=== PATIENT | female | born 1950 | race Caucasian/White ===

== ENCOUNTER → 2017-05-30 17:26 | Emergency (ER) | payer MEDICARE ==
[~2017-05-30 17:26] MED LIST: Famotidine IV* 10 MG/ML 2 ML (20 mg) IV ONE; KCL 20 MEQ/100 ML IVPREMIX* 20 MEQ/100 ML BAG IV ONE; Ketorolac INJ* 30 MG/ML 1 ML VIAL IV PUSH ONE; Metoclopramide IV* 5 MG/ML 2 ML VIAL IV SLOW PU ONE; NS 0.9% 1000 ML* 2,000 ML IV ONE; Potassium Chloride LIQUID* 20 MEQ PACKET PO ONE; diPHENhydraMINE IV* 50 MG/ML 1 ml VIAL (BENADRYL) IV ONE
[2017-05-30 20:40] LABS: ABS Basophils 0 10^3/ul (0-0.2); ABS Eosinophils 0 10^3/ul (0-0.6); ABS Lymphocytes 2.7 10^3/ul (1.0-4.8); ABS Monocytes 1.4 10^3/ul (0-0.8); ABS Neutrophils 9.6 10^3/ul (1.5-7.7); ABS Nucleated RBC 0 10^3/ul; Eosinophil % 0.2 % (0-6); Hematocrit 44 % (35-47); Lymphocyte % 19.4 % (25-47); Mean Corpuscular HGB Conc 34 g/dl (31-36); Mean Corpuscular Hemoglobin 29 pg (27-31); Mean Corpuscular Volume 85 fL (80-97); Mean Platelet Volume 8 um3 (7.4-10.4); Nucleated Red Blood Cells % 0; Platelet Count 291 10^3/ul (150-450); Red Blood Count 5.16 10^6/ul (4.0-5.4); Red Cell Distribution Width 12 % (10.5-15); White Blood Count 13.8 10^3/ul (3.5-10.8)
[2017-05-30] MEDS: KCL premix 10MEQ/50 ML x 2 BAGS IV SCH ×2 (21:30→23:00)
--- NOTE | 2017-05-31 00:16 | ED ---
Susu Menjivar Edward, scribed for Javi Gallagher MD on 05/30/17 at 2016 . Complex/Multi-Sys Presentation - HPI Summary HPI Summary: 66 y/o female presents to the ED c/o intermittent vomiting for four days. Pt has not been able to eat. Symptoms have not been alleviated by anything. Denies pain. Pt has had episodes of vomiting before. Pt's bowel movements were normal prior to the vomiting. PMHx GERD, glaucoma. Pt takes her GERD medication twice a day Denies history of HTN, DM. Pt states her BP and HR were increased two days ago, checked at [facility]. Sx tube removed. - History Of Current Complaint Chief Complaint: EDAbdPain Time Seen by Provider: 05/30/17 20:08 Hx Obtained From: Patient Onset/Duration: Lasting Days, Still Present Timing: Intermittent, Lasting: Associated Signs And Symptoms: Positive: Vomiting - Allergies/Home Medications Allergies/Adverse Reactions: Allergies Allergy/AdvReac Type Severity Reaction Status Date / Time No Known Allergies Allergy Verified 01/21/15 08:12 PMH/Surg Hx/FS Hx/Imm Hx Previously Healthy: No GI History: Reports: Hx Gastroesophageal Reflux Disease Musculoskeletal History: Reports: Hx Arthritis - THROUGHOUT Sensory History: Reports: Hx Contacts or Glasses - GLASSES, Hx Glaucoma - LEFT EYE Denies: Hx Hearing Aid Opthamlomology History: Reports: Hx Contacts or Glasses - GLASSES, Hx Glaucoma - LEFT EYE - Cancer History Hx Chemotherapy: No Hx Radiation Therapy: No - Surgical History Surgery Procedure, Year, and Place: 1979-[place]AL LIGATION- [place]. [place] [facility] [place] 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 2001-[facility] FOOT F[facility]IT[facility]. 2006-GLAUCOMA LEFT EYE- VAL[facility]- [place]. 2008-[place]OM[place] [facility] [place] 2009[place] [place] Hx Anesthesia Reactions: Yes - HAS WOKEN UP 3 TIMES DURING 3 DIFFERENT SURGERIES Infectious Disease History: No Infectious Disease History: Denies: Traveled Outside the [place] in Last 30 Days - Family History Known Family History: Positive: Unknown - Social History Alcohol Use: Weekly Alcohol Amount: 3 PER WEEK Hx Substance Use: No Substance Use Type: Reports: None Hx Tobacco Use: Yes Smoking Status (MU): Former Smoker Amount Used/How Often: 1 PPD X 30 YEARS Have You Smoked in the Last Year: No Review of Systems Constitutional: Negative Eyes: Negative ENT: Negative Cardiovascular: Negative Respiratory: Negative Positive: Vomiting. Negative: Abdominal Pain Genitourinary: Negative Musculoskeletal: Negative Skin: Negative Neurological: Negative Psychological: Normal All Other Systems Reviewed And Are Negative: Yes Physical Exam - Summary Physical Exam Summary: VITAL SIGNS: Reviewed. GENERAL: Patient is a well-developed and nourished female who is lying comfortable in the stretcher. Patient is not in any acute respiratory distress. HEAD AND FACE: No signs of trauma. No ecchymosis, hematomas or skull depressions. No sinus tenderness. EYES: PERRLA, EOMI x 2, No injected conjunctiva, no nystagmus. EARS: Hearing grossly intact. Ear canals and tympanic membranes are within normal limits. MOUTH: Oropharynx within normal limits. NECK: Supple, trachea is midline, no adenopathy, no JVD, no carotid bruit, no c- spine tenderness, neck with full ROM. CHEST: Symmetric, no tenderness at palpation LUNGS: Clear to auscultation bilaterally. No wheezing or crackles. CVS: Regular rate and rhythm, S1 and S2 present, no murmurs or gallops appreciated. ABDOMEN: Soft, non-tender. No signs of distention. No rebound no guarding, and no masses palpated. Bowel sounds are normal. EXTREMITIES: FROM in all major joints, no edema, no cyanosis or clubbing. NEURO: Alert and oriented x 3. No acute neurological deficits. Speech is normal and follows commands. SKIN: Dry and warm Triage Information Reviewed: Yes Vital Signs On Initial Exam: Initial Vitals Temp Pulse Resp BP Pulse Ox 98.7 F 116 18 132/77 98 05/30/17 17:30 05/30/17 17:30 05/30/17 17:30 05/30/17 17:30 05/30/17 17:30 Vital Signs Reviewed: Yes Diagnostics - Vital Signs Vital Signs Temp Pulse Resp BP Pulse Ox 05/30/17 17:30 98.7 F 116 18 132/77 98 - Laboratory Result Diagrams: 05/30/17 20:30 05/30/17 20:30 Lab Statement: Any lab studies that have been ordered have been reviewed, and results considered in the medical decision making process. Complex Multi-Symp Course/Dx Assessment/Plan: 66 y/o female presents to the ED c/o intermittent vomiting for four days. In the ED the pt had PO intake without voimting. The pt will be d/c home with f/u with PCP and instructed to increase citrus intake tomorrow. - Diagnoses Provider Diagnoses: Vomiting Discharge - Discharge Plan Condition: Stable Disposition: HOME Prescriptions: Metoclopramide TAB* [Reglan TAB*] 10 mg PO Q6H PRN #20 tab PRN Reason: Nausea/Vomiting Patient Education Materials: Acute Nausea and Vomiting (ED) Referrals: Malika Nails MD [Primary Care Provider] - 4 Days (PLEASE F/U IN 3-5 DAYS) Additional Instructions: PLEASE RETURN TO THE ED FOR RETURN OR WORSENING OF SYMPTOMS. PLEASE INCREASE YOUR CITRUS INTAKE TOMORROW (ORANGES AND BANANAS) The documentation as recorded by the Susu rodriguez Edward accurately reflects the service I personally performed and the decisions made by Elliott humphrey Abdul, MD.
[2017-05-31 02:28] VITALS: BP 157/78
== END | disposition home or self-care (01) ==
LOC: ED 17:26
DX: R11.10 Vomiting, unspecified (principal); K21.9 Gastro-esophageal reflux disease without esophagitis; M19.90 Unspecified osteoarthritis, unspecified site; Z87.891 Personal history of nicotine dependence
CPT/HCPCS: 36415; 80053; 82150; 83605; 83690; 85025; 86140; 96365; 96366; 96374; 96375; 99282; A9270-GY; J1200; J1885; J2765; J3480

== ENCOUNTER 2017-06-01 18:41 | Emergency (ER) | payer MEDICARE ==
[2017-06-01] MEDS ORDERED: NS 0.9% 1000 ML* 1,000 ML IV ONE (19:27)
[2017-06-01] MEDS ORDERED: Famotidine IV* 10 MG/ML 2 ML (20 mg) IV SLOW PU ONE (19:28)
[2017-06-01] MEDS ORDERED: Pantoprazole IV* 40 MG IV ONE (19:28)
[2017-06-01] MEDS ORDERED: Magnesium Sulfate 1 GM IV* 1 GM/100 ML BAG IV ONE (19:29)
[2017-06-01] MEDS ORDERED: NS 0.9% w/ 40 Meq KCL 1000 ML* 1,000 ML IV SCH (20:00)
[2017-06-01 20:19] LABS: ABS Basophils 0 10^3/ul (0-0.2); ABS Eosinophils 0.1 10^3/ul (0-0.6); ABS Lymphocytes 3.1 10^3/ul (1.0-4.8); ABS Monocytes 0.9 10^3/ul (0-0.8); ABS Neutrophils 7.1 10^3/ul (1.5-7.7); ABS Nucleated RBC 0 10^3/ul; Eosinophil % 0.8 % (0-6); Hematocrit 38 % (35-47); Lymphocyte % 27.8 % (25-47); Mean Corpuscular HGB Conc 34 g/dl (31-36); Mean Corpuscular Hemoglobin 29 pg (27-31); Mean Corpuscular Volume 86 fL (80-97); Mean Platelet Volume 8 um3 (7.4-10.4); Nucleated Red Blood Cells % 0.1; Platelet Count 269 10^3/ul (150-450); Red Blood Count 4.44 10^6/ul (4.0-5.4); Red Cell Distribution Width 12 % (10.5-15); White Blood Count 11.3 10^3/ul (3.5-10.8)
[2017-06-01 20:34] LABS: EGFR Non-African American 86.6 (>60)
[2017-06-01] MEDS: Potassium Chloride LIQUID* 20 MEQ PACKET PO ONE (21:26)
[2017-06-02] MEDS ORDERED: Potassium Chloride LIQUID* 20 MEQ PACKET ONE (00:05)
[2017-06-02] MEDS: Potassium Chloride LIQUID* 20 MEQ PACKET PO ONE (00:09)
[2017-06-02 03:26] VITALS: BP 138/71
--- NOTE | 2017-06-02 05:28 | ED ---
Bob Menjivar Julia, scribed for Дмитрий Norton MD on 06/01/17 at 1920 . Complex/Multi-Sys Presentation - HPI Summary HPI Summary: This patient is a 66 year old M [place] [facility] [place] by her with chief complaint nausea and vomiting since 05/26/17. She denies diarrhea. She reports sensation of blockage at base of esophagus. Patient states she has not drank fluids or eaten since 05/26/17. Her last BM was the morning of . She has been given multiple anti-nausea medications; providing no relief in symptoms. Pt has was at PCPs office (Dr. Nails) earlier today and was told she needs to increase her potassium levels in order to have GI scope performed; she states she was referred to ED to increase potassium levels. - History Of Current Complaint Chief Complaint: EDGeneral Time Seen by Provider: 06/01/17 19:07 Hx Obtained From: Patient Onset/Duration: Lasting Weeks, Still Present Timing: Constant Location: Negative Associated Signs And Symptoms: Positive: Other - nausea and vomiting - Allergies/Home Medications Allergies/Adverse Reactions: Allergies Allergy/AdvReac Type Severity Reaction Status Date / Time No Known Allergies Allergy Verified 01/21/15 08:12 PMH/Surg Hx/FS Hx/Imm Hx GI History: Reports: Hx Gastroesophageal Reflux Disease Musculoskeletal History: Reports: Hx Arthritis - THROUGHOUT Sensory History: Reports: Hx Contacts or Glasses - GLASSES, Hx Glaucoma - LEFT EYE Denies: Hx Hearing Aid Opthamlomology History: Reports: Hx Contacts or Glasses - GLASSES, Hx Glaucoma - LEFT EYE - Cancer History Hx Chemotherapy: No Hx Radiation Therapy: No - Surgical History Surgery Procedure, Year, and Place: 1979-[place]UBAL LIGATION- [place]. 1985[place] [facility] [place]-FALLOPIAN TUBE REMOVED-VENTILATING EXPERT. 2001-LEFT FOOT FASCIITIS- [facility]. 2006-GLAUCOMA LEFT EYE- [facility]- [place]. 2007-[place] [facility] [place] 2009[place] [place]x Anesthesia Reactions: Yes - HAS WOKEN UP 3 TIMES DURING 3 DIFFERENT SURGERIES Infectious Disease History: No Infectious Disease History: Denies: Traveled Outside the [place] in Last 30 Days - Family History Known Family History: Positive: Other - alzhiemers Negative: Cardiac Disease - Social History Alcohol Use: Weekly Alcohol Amount: 3 PER WEEK Hx Substance Use: Yes Substance Use Type: Reports: Marijuana Hx Tobacco Use: Yes Smoking Status (MU): Former Smoker Amount Used/How Often: 1 PPD X 30 YEARS Have You Smoked in the Last Year: No Review of Systems Positive: Other - hypokalemia. Negative: Fever Positive: Vomiting, Nausea. Negative: Diarrhea All Other Systems Reviewed And Are Negative: Yes Physical Exam - Summary Physical Exam Summary: Appearance: Well appearing, no pain distress Skin: warm, dry, reflects adequate perfusion Head/face: normal Eyes: EOMI, MARIO ENT: normal Neck: supple, non-tender Respiratory: CTA, breath sounds present Cardiovascular: RRR, pulses symmetrical Abdomen: non-tender, soft Bowel: present Musculoskeletal: normal, strength/ROM intact Neuro: normal, sensory motor intact, A&Ox3 Triage Information Reviewed: Yes Vital Signs On Initial Exam: Initial Vitals Temp Pulse Resp BP Pulse Ox 98.5 F 77 15 140/66 97 06/01/17 18:42 06/01/17 18:42 06/01/17 18:42 06/01/17 18:42 06/01/17 18:42 Vital Signs Reviewed: Yes Diagnostics - Vital Signs Vital Signs Temp Pulse Resp BP Pulse Ox 06/01/17 19:00 83 18 135/88 100 06/01/17 18:42 98.5 F 77 15 140/66 97 - Laboratory Lab Results: Lab Results 06/01/17 06/01/17 Range/Units 20:08 20:08 WBC 11.3 H (3.5-10.8) 10^3/ul RBC 4.44 (4.0-5.4) 10^6/ul Hgb 13.0 (12.0-16.0) g/dl Hct 38 (35-47) % MCV 86 (80-97) fL MCH 29 (27-31) pg MCHC 34 (31-36) g/dl RDW 12 (10.5-15) % Plt Count 269 (150-450) 10^3/ul MPV 8 (7.4-10.4) um3 Neut % (Auto) 62.8 (38-83) % Lymph % (Auto) 27.8 (25-47) % [place] % (Auto) 8.2 (1-9) % Eos % (Auto) 0.8 (0-6) % Baso % (Auto) 0.4 (0-2) % Absolute Neuts (auto) 7.1 (1.5-7.7) 10^3/ul Absolute Lymphs (auto) 3.1 (1.0-4.8) 10^3/ul Absolute Monos (auto) 0.9 H (0-0.8) 10^3/ul Absolute Eos (auto) 0.1 (0-0.6) 10^3/ul Absolute Basos (auto) 0 (0-0.2) 10^3/ul Absolute Nucleated RBC 0 10^3/ul Nucleated RBC % 0.1 Sodium 135 (133-145) mmol/L Potassium 2.6 L* (3.5-5.0) mmol/L Chloride 101 (101-111) mmol/L Carbon Dioxide 26 (22-32) mmol/L Anion Gap 8 (2-11) mmol/L BUN 14 (6-24) mg/dL Creatinine 0.68 (0.51-0.95) mg/dL Est GFR ( Amer) 111.3 (>60) Est GFR (Non-Af Amer) 86.6 (>60) BUN/Creatinine Ratio 20.6 H (8-20) Glucose 94 (70-100) mg/dL Calcium 8.4 L (8.6-10.3) mg/dL Magnesium 2.2 (1.9-2.7) mg/dL Result Diagrams: 06/01/17 20:08 06/01/17 20:08 Lab Statement: Any lab studies that have been ordered have been reviewed, and results considered in the medical decision making process. - EKG 19:41 Cardiac Rate: NL - at 81 BPM EKG Rhythm: Sinus Rhythm ST Segment: Normal EKG Interpretation: nml axis, poor R wave progression, Q wave in lead 3 Complex Multi-Symp Course/Dx Course Of Treatment: Patient presents with persistent nausea and vomiting for past week. Patient has been seen for hypokalemia. She was told she must improve potassium levels before having GI scope performed and was refered to ED. Pts potassium levels are at 2.6. I spoke with Dr. Siddiqui and she agrees that patient is stable enough to have GI scope performed given that she is currently asymptomatic. Patient given IV and oral potassium here and IV mag. Able to joan po slowly. Likely esoph stricture, will need this rectified before obstructive cause of vomiting and resulting hypoK rectified. - Diagnoses Differential Diagnoses/HQI/PQRI: Metabolic Abnormality, Other - esophageal cause of vomiting Provider Diagnoses: Esophageal stricture, Acute vomiting, Hypokalemia due to loss of potassium - Physician Notifications Discussed Care Of Patient With: Malika Siddiqui - hospitalist Time Discussed With Above Provider: 21:02 Instructed by Provider To: Other - Agrees pt does not need to be admitted, agrees with plan, and states pt can safely have procedure as needed. - Critical Care Time Critical Care Time: 30-74 min - excludes separately billable procedures. Includes extensive discussion with family, formulation of plan and mult reevals. Discharge - Discharge Plan Condition: Good Disposition: HOME Patient Education Materials: Hypokalemia (ED), Esophageal Stricture (ED) Referrals: Malika Nails MD [Primary Care Provider] - Coleen Ayon DO [Doctor of Osteopathy] - Additional Instructions: Call GI Lab and go in for your procedure in the morning. Fill your prescription. 1. Your potassium was not at a critical level. At >2.2 you should be able to safely have this procedure. 2. The vomiting from the stricture is the cause of the low potassium. Potassium will not be fixed until you have the procedure. 3. Return with persistent vomiting, weakness, worse or other concerns. 4. Liquid intake only. Only take small sips. The documentation as recorded by the Bob rodriguez Julia accurately reflects the service I personally performed and the decisions made by me, Дмитрий Norton MD.
== END 2017-06-02 01:10 | disposition home or self-care (01) ==
LOC: ED 18:41
DX: E87.6 Hypokalemia (principal); R11.2 Nausea with vomiting, unspecified; Z87.891 Personal history of nicotine dependence; K22.2 Esophageal obstruction; Z87.19 Personal history of other diseases of the digestive system
CPT/HCPCS: 36415; 80048; 83735; 85025; 93005; 96374; 96375; 99285; A9270-GY; J3475

== ENCOUNTER 2018-03-14 19:14 | Inpatient (IN) | payer MEDICARE ==
--- NOTE | 2018-03-14 19:42 | ED ---
Abdominal Pain/Female - HPI Summary HPI Summary: This patient is a 67 year old F presenting to [facility] accompanied by her with a chief complaint of constant epigastric pain since 03:00. Patient notes that she was seen at [facility] in May 2017 similar symptoms. The patient rates the pain 10/10 in severity. Symptoms aggravated by nothing. Symptoms alleviated by nothing. Patient reports chills, clammy skin, nausea, and vomiting. Patient reports that her last BM was 1 day ago. Pt denies hx of constipation. Patient takes Prozac daily. - History of Current Complaint Chief Complaint: EDAbdPain Stated Complaint: VOMITING Time Seen by Provider: 03/14/18 19:23 Hx Obtained From: Patient Onset/Duration: Sudden Onset, Lasting Hours, Still Present Timing: Constant Severity Initially: Moderate Severity Currently: Moderate Pain Intensity: 10 Pain Scale Used: 0-10 Numeric Location: Diffuse Radiates: No Aggravating Factor(s): Nothing Alleviating Factor(s): Nothing Associated Signs and Symptoms: Positive: Nausea, Vomiting Allergies/Adverse Reactions: Allergies Allergy/AdvReac Type Severity Reaction Status Date / Time No Known Allergies Allergy Verified 03/14/18 19:32 PMH/Surg Hx/FS Hx/Imm Hx GI History: Reports: Hx Gastroesophageal Reflux Disease Musculoskeletal History: Reports: Hx Arthritis - THROUGHOUT Sensory History: Reports: Hx Contacts or Glasses - GLASSES, Hx Glaucoma - LEFT EYE Denies: Hx Hearing Aid Opthamlomology History: Reports: Hx Contacts or Glasses - GLASSES, Hx Glaucoma - LEFT EYE - Cancer History Hx Chemotherapy: No Hx Radiation Therapy: No - Surgical History Surgery Procedure, Year, and Place: 1979-TUBAL LIGATION- [place]. 1985-LEFT EYE CATARACT- [facility] [place]. 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 2001-LEFT FOOT F[facility]CIITIS[facility]. 2006-GLAUCOMA LEFT EYE- [facility]- [place]. 2007-RIGHT PAROTIDECTOMY- [facility] [place]. 2009-LEFT PAROTIDECTOMY[place] [place] Hx Anesthesia Reactions: Yes - HAS WOKEN UP 3 TIMES DURING 3 DIFFERENT SURGERIES Infectious Disease History: No Infectious Disease History: Denies: Traveled Outside the US in Last 30 Days - Family History Known Family History: Positive: Other - alzhiemers Negative: Cardiac Disease - Social History Alcohol Use: Weekly Alcohol Amount: 3 PER WEEK Hx Substance Use: Yes Substance Use Type: Reports: Marijuana Hx Tobacco Use: Yes Smoking Status (MU): Former Smoker Amount Used/How Often: 1 PPD X 30 YEARS Have You Smoked in the Last Year: No Review of Systems Positive: Chills, Skin Diaphoresis Negative: Epistaxis Negative: Cough Positive: Abdominal Pain - epigastric pain, Vomiting, Nausea Negative: Rash All Other Systems Reviewed And Are Negative: Yes Physical Exam - Summary Physical Exam Summary: VITAL SIGNS: Reviewed. GENERAL: Patient is a well-developed and nourished FEMALE who is lying comfortable in the stretcher. Patient is not in any acute respiratory distress. HEAD AND FACE: No signs of trauma. No ecchymosis, hematomas or skull depressions. No sinus tenderness. EYES: PERRLA, EOMI x 2, No injected conjunctiva, no nystagmus. EARS: Hearing grossly intact. Ear canals and tympanic membranes are within normal limits. MOUTH: Oropharynx within normal limits. NECK: Supple, trachea is midline, no adenopathy, no JVD, no carotid bruit, no c- spine tenderness, neck with full ROM. CHEST: Symmetric, no tenderness at palpation LUNGS: Clear to auscultation bilaterally. No wheezing or crackles. CVS: Regular rate and rhythm, S1 and S2 present, no murmurs or gallops appreciated. ABDOMEN: Soft, diffuse abdominal tenderness. Abdominal distention. No rebound no guarding, and no masses palpated. Hypoactive bowel sounds. EXTREMITIES: FROM in all major joints, no edema, no cyanosis or clubbing. NEURO: Alert and oriented x 3. No acute neurological deficits. Speech is normal and follows commands. SKIN: Dry and warm Triage Information Reviewed: Yes Vital Signs On Initial Exam: Initial Vitals Temp Pulse Resp BP Pulse Ox 95.3 F 99 20 139/88 98 03/14/18 19:17 03/14/18 19:17 03/14/18 19:17 03/14/18 19:17 03/14/18 19:17 Vital Signs Reviewed: Yes Diagnostics - Vital Signs Vital Signs Temp Pulse Resp BP Pulse Ox 03/14/18 19:17 95.3 F 99 20 139/88 98 - Laboratory Result Diagrams: 03/14/18 19:51 03/14/18 19:51 Lab Statement: Any lab studies that have been ordered have been reviewed, and results considered in the medical decision making process. - CT CT Abd/Pelvis CT Interpretation Completed By: Radiologist Summary of CT Findings: Impression: sigmoid colon diverticulitis without performation or abscess. Dr. Gallagher has reviewed this report. Re-Evaluation - Re-Evaluation 1st re-eval Re-Evaluation Time: 23:41 Change: Improved Comment: Reviewed imaging results with patient. Abdominal Pain Fem Course/Dx - Course Course Of Treatment: This patient is a 67 year old F reporting constant epigastric pain and vomiting since 03:00. Patient notes that she was seen at [facility] in [place] [address] Abdomen/Pelvis reveals, per radiologist, sigmoid colon diverticulitis without performation or abscess. ED physician has reviewed this radiology report. Test results with no significant abnormalities except for elevated lactic acid. In the ED course the patient was given Toradol, IV fluids, Reglan, Flagyl, Levaquin, Contrast, and Benadryl. Hospitalist was paged at 23:42. We discussed patient care with Dr. Grace, hospitalist, at 00:12 and agreed to admit the patient to [facility]. Patient will be admitted to [facility]. The patient is agreeable with this plan. - Diagnoses Provider Diagnoses: Diverticulitis - Provider Notifications Discussed Care Of Patient With: Melanie Grace Time Discussed With Above Provider: 00:12 Instructed by Provider To: Admit As Inpatient Discharge - Sign-Out/Discharge Documenting (check all that apply): Patient Departure - admit to [facility] - Discharge Plan Condition: Stable Disposition: HOME Referrals: Malika Nails MD [Primary Care Provider] - - Attestation Statements Document Initiated by Scribe: Yes Documenting Scribe: Brandi Edge Provider For Whom Diane is Documenting (Include Credential): Javi Gallagher MD Scribe Attestation: Brandi Menjivar scribed for Javi Gallagher MD on 03/15/18 at 0102.
[2018-03-14] MEDS ORDERED: Ketorolac INJ* 30 MG/ML 1 ML VIAL IV PUSH ONE (19:45)
[2018-03-14] MEDS ORDERED: NS 0.9% 1000 ML* 1,000 ML IV ONE ×2 (19:45→20:19)
[2018-03-14] MEDS ORDERED: Metoclopramide IV* 5 MG/ML 2 ML VIAL IV SLOW PU ONE (19:45)
[2018-03-14] MEDS ORDERED: diPHENhydraMINE PO* 50 MG PO ONE (19:46)
[2018-03-14 20:01] LABS: ABS Basophils 0 10^3/ul (0-0.2); ABS Eosinophils 0 10^3/ul (0-0.6); ABS Lymphocytes 1.3 10^3/ul (1.0-4.8); ABS Monocytes 0.2 10^3/ul (0-0.8); ABS Neutrophils 12.2 10^3/ul (1.5-7.7); ABS Nucleated RBC 0 10^3/ul; Eosinophil % 0.2 % (0-6); Hematocrit 42 % (35-47); Hemoglobin 14.3 g/dl (12.0-16.0); Lymphocyte % 9.5 % (25-47); Mean Corpuscular HGB Conc 34 g/dl (31-36); Mean Corpuscular Hemoglobin 29 pg (27-31); Mean Corpuscular Volume 86 fL (80-97); Mean Platelet Volume 8.3 fL (7.4-10.4); Nucleated Red Blood Cells % 0; Platelet Count 334 10^3/ul (150-450); Red Blood Count 4.92 10^6/ul (4.00-5.40); Red Cell Distribution Width 12 % (10.5-15); White Blood Count 13.8 10^3/ul (3.5-10.8)
[2018-03-14 20:09] LABS: INR 0.93 (0.77-1.02)
[2018-03-14 20:19] LABS: EGFR Non-African American 66.7 (>60)
[2018-03-14 21:41] LABS: Urine Appearance Clear; Urine Blood Negative (Negative); Urine Color Yellow; Urine Ketones 2+ (Negative); Urine Protein Negative (Negative); Urine Specific Gravity 1.013 (1.010-1.030); Urine Urobilinogen Negative (Negative)
[2018-03-14] MEDS ORDERED: Iohexol 300* (CONTRAST) 10 ML SDV IV ONE (22:11)
[2018-03-14] MEDS ORDERED: metroNIDAZOLE IV 500 MG/100ML* 500 MG/100 ML BAG IVPB ONE (23:40)
[2018-03-14] MEDS ORDERED: Levofloxacin 500 MG IVPREMIX(* 500 MG/100 ML BAG IVPB ONE (23:40)
[2018-03-14] MEDS ORDERED: Morphine VIAL* 4 MG/ML VIAL (1 ml vial) IV PRN (23:42)
[2018-03-14] MEDS ORDERED: Morphine VIAL* 4 MG/ML VIAL (1 ml vial) IV ONE (23:58)
--- NOTE | 2018-03-14 23:59 | ADMNOTE ---
Subjective Date of Service: 03/15/18 Interval History: code status full this is admission h/p hpi this is a 67 yr old wf with no sig phx presented to er with c/o of abd last night. pain described as constant nagging pain from epigastric to suprapubic level, avg 7/10 associated with n/v. her last meal was last night though. [place] wbc [place] [id number] of abd/pelvis showed sig diverticulitis. pt got flagyl/levaquin from er. she got one dose of ativan to take her edge off as holding order. 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 phx left eye glaucoma s/p pump placement for eye pressure moniter hx of esophagitis hiatal hernia pshx r fallopian tube resetion due to swelling and edema s/l foot bunion surgery s/p cataracts extraction social hx quit cig 20 yrs ago 1-2 cocktail daily uses marijuana at home fhx dm Review of Systems - Measurements Intake and Output: Intake and Output Last 24 Hours 03/12/18 03/13/18 03/14/18 03/15/18 06:59 06:59 06:59 06:59 Intake Total 1999 Balance 1999 Weight 148 lb Intake: IV Fluids 1999 - Review of Systems General Comments: pertinent as per hpi Objective Active Medications: Levofloxacin/Dextrose (Levaquin 500 Mg Ivpremix(*)) 500 mg in 100 mls @ 100 mls /hr IVPB ONCE ONE Stop: 03/15/18 00:39 Metronidazole/Sodium Chloride (Flagyl 500 Mg Ivpb*) 500 mg in 100 mls @ 100 mls /hr IVPB ONCE ONE Stop: 03/15/18 00:39 Morphine Sulfate (Morphine Inj ((Syringe))*) 4 mg IV UC ONCE PRN PRN Reason: PAIN Vital Signs - 8 hr 03/14/18 03/14/18 19:17 19:41 Temperature 95.3 F 98.4 F Pulse Rate 99 Respiratory 20 Rate Blood Pressure 139/88 (mmHg) O2 Sat by Pulse 98 Oximetry Oxygen Devices in Use Now: None Appearance: nad Eyes: No Scleral Icterus, PERRLA Ears/Nose/Mouth/Throat: NL Teeth, Lips, Gums, Clear Oropharnyx, Mucous Membranes Moist Neck: NL Appearance and Movements; NL JVP, Trachea Midline, No Thyroid Enlargement, Masses Respiratory: Symmetrical Chest Expansion and Respiratory Effort, Clear to Auscultation Cardiovascular: NL Sounds; No Murmurs; No JVD, RRR Abdominal: - - soft + benign abd with mild suprapubic tenderness no rebound no guarding Extremities: No Edema, No Clubbing, Cyanosis Skin: No Rash or Ulcers Neurological: Alert and Oriented x 3, NL Sensation, NL Muscle Strength and Tone Result Diagrams: 03/14/18 19:51 03/14/18 19:51 Microbiology and Other Data: Microbiology 03/14/18 19:40 Stool Occult Blood ([facility]) - Final Stool Assess/Plan/Problems-Billing Assessment: 67 yr old wf with no sig hx presented with abd pain and n/v ct of abd + sig diverticulitis got flagyl and levaquin no diarrheas or bm yet - Patient Problems (1) Sigmoid diverticulitis Current Visit: Yes Status: Acute Code(s): K57.32 - DVTRCLI OF LG INT W/O PERFORATION OR ABSCESS W/O BLEEDING SNOMED Code(s): 779892343 Comment: levaquin and flagyl ivf clear liquid for now (2) SIRS (systemic inflammatory response syndrome) Current Visit: Yes Status: Acute Code(s): R65.10 - SIRS OF NON-INFECTIOUS ORIGIN W/O ACUTE ORGAN DYSFUNCTION SNOMED Code(s): 836397705 Comment: on abx moniter cbc trend (3) Abdominal pain Current Visit: Yes Status: Acute Code(s): R10.9 - UNSPECIFIED ABDOMINAL PAIN SNOMED Code(s): 81589290 Comment: pt claimed it is 11/15 but has a benign abd exam morphine 1 mg q 4 prn (4) Hx of esophagitis Current Visit: Yes Status: Acute Code(s): Z87.19 - PERSONAL HISTORY OF OTHER DISEASES OF THE DIGESTIVE SYSTEM SNOMED Code(s): 766433764613531 Comment: ppi if needed
[2018-03-15] MEDS ORDERED: NS 0.9% 1000 ML* 1,000 ML IV SCH (00:30)
[2018-03-15] MEDS ORDERED: LORazepam INJ* 2 MG/ML 1 ML VIAL IV PUSH ONE (02:00)
[2018-03-15] MEDS: Ondansetron INJ* 2 MG/ML VIAL IV PRN (02:10)
[2018-03-15] MEDS ORDERED: Levofloxacin 750 MG IVPREMIX(* 750 MG/150 ML BAG IVPB SCH ×2 (02:45→23:45)
[2018-03-15] MEDS: Morphine VIAL* 4 MG/ML VIAL (1 ml vial) IV PRN ×2 (05:35→23:52)
[2018-03-15] MEDS: NEPAFENAC LEFT EYE SCH (07:47)
[2018-03-15] MEDS: metroNIDAZOLE IV 500 MG/100ML* 500 MG/100 ML BAG IVPB SCH ×2 (07:48→16:19)
[2018-03-15] MEDS: FLUoxetine CAP* 20 MG PO SCH (07:49)
[2018-03-15 08:18] LABS: ABS Basophils 0 10^3/ul (0-0.2); ABS Eosinophils 0 10^3/ul (0-0.6); ABS Monocytes 0.5 10^3/ul (0-0.8); ABS Neutrophils 15.5 10^3/ul (1.5-7.7); ABS Nucleated RBC 0 10^3/ul; Eosinophil % 0 % (0-6); Hematocrit 40 % (35-47); Hemoglobin 13.4 g/dl (12.0-16.0); Lymphocyte % 5.7 % (25-47); Mean Corpuscular HGB Conc 33 g/dl (31-36); Mean Corpuscular Hemoglobin 29 pg (27-31); Mean Corpuscular Volume 86 fL (80-97); Mean Platelet Volume 7.9 fL (7.4-10.4); Nucleated Red Blood Cells % 0.1; Platelet Count 327 10^3/ul (150-450); Red Blood Count 4.69 10^6/ul (4.00-5.40); Red Cell Distribution Width 12 % (10.5-15); White Blood Count 16.9 10^3/ul (3.5-10.8)
[2018-03-15 08:39] LABS: EGFR Non-African American 94.3 (>60)
--- NOTE | 2018-03-15 10:49 | PN ---
Subjective Date of Service: 03/15/18 Interval History: Patient resting in bed. IV infusing. Patient is pleasant, cooperative, and appears comfortable. Reddish vomit at bedside in basin. Repeats she drank grape juice before vomiting this morning. Encouraged to refrain from red colored food and beverages. Reports she was nauseated and felt a like there was a "lump" in her stomach before vomiting, but since vomiting symptoms have resolved. Nurse did call this morning requesting different nasuea medication as patient did not feel Zofran help, compazine ordered but patient has not needed it has symptoms resolved after vomiting. Currently denies cp, sob, abd pain, nausea, vomiting, or diarrhea. Reports last BM was in the ED yesterday and was soft. 12 ROS completed and all other negative except above. Family History: Unchanged from Admission Social History: Unchanged from Admission Past Medical History: Unchanged from Admission Objective Active Medications: Fluoxetine HCl (Prozac Cap*) 40 mg PO DAILY [facility] Last Admin: 03/15/18 07:49 Dose: 40 mg Metronidazole/Sodium Chloride (Flagyl 500 Mg Ivpb*) 500 mg in 100 mls @ 100 mls /hr IVPB Q8H TAZ Last Admin: 03/15/18 07:48 Dose: 100 mls/hr Levofloxacin/Dextrose (Levaquin 750 Mg Ivpremix(*)) 750 mg in 150 mls @ 100 mls /hr IVPB 2345 TAZ Morphine Sulfate (Morphine Vial*) 4 mg IV UC ONCE PRN PRN Reason: PAIN Last Admin: 03/15/18 00:08 Dose: 4 mg Morphine Sulfate (Morphine Vial*) 1 mg IV Q4H PRN PRN Reason: PAIN Last Admin: 03/15/18 05:35 Dose: 1 mg Nepafenac ([place] (Nf)) [facility]; Protocol Last Admin: 03/15/18 07:47 Dose: Not Given Ondansetron HCl (Zofran Inj*) 4 mg IV Q6H PRN PRN Reason: NAUSEA Last Admin: 03/15/18 02:10 Dose: 4 mg Prochlorperazine Edisylate (Compazine Inj*) 2.5 mg IV Q6H PRN PRN Reason: NAUSEA/VOMITING Vital Signs - 8 hr 03/15/18 03/15/18 03/15/18 03:53 04:05 05:35 Temperature 97.5 F Pulse Rate 76 Respiratory 17 18 18 Rate Blood Pressure 148/71 (mmHg) O2 Sat by Pulse 96 Oximetry 03/15/18 03/15/18 06:21 07:03 Temperature 98.3 F Pulse Rate 74 Respiratory 18 26 Rate Blood Pressure 147/69 (mmHg) O2 Sat by Pulse 98 Oximetry Oxygen Devices in Use Now: None Appearance: Well appearing. Eyes: No Scleral Icterus Ears/Nose/Mouth/Throat: Mucous Membranes Moist Neck: NL Appearance and Movements; NL JVP Respiratory: Symmetrical Chest Expansion and Respiratory Effort, Clear to Auscultation Cardiovascular: NL Sounds; No Murmurs; No JVD, RRR, No Edema Abdominal: NL Sounds; No Tenderness; No Distention Extremities: No Edema Skin: No Rash or Ulcers Neurological: Alert and Oriented x 3 Nutrition: Taking PO's - Currently on clears Result Diagrams: 03/15/18 07:57 03/15/18 07:57 Additional Lab and Data: Laboratory Results - last 24 hr 03/14/18 03/14/18 03/14/18 19:51 19:51 19:51 WBC 13.8 H RBC 4.92 Hgb 14.3 Hct 42 MCV 86 MCH 29 MCHC 34 RDW 12 Plt Count 334 MPV 8.3 Neut % (Auto) 88.4 H Lymph % (Auto) 9.5 L Lewis % (Auto) 1.8 Eos % (Auto) 0.2 Baso % (Auto) 0.1 Absolute Neuts (auto) 12.2 H Absolute Lymphs (auto) 1.3 Absolute Monos (auto) 0.2 Absolute Eos (auto) 0 Absolute Basos (auto) 0 Absolute Nucleated RBC 0 Nucleated RBC % 0 INR (Anticoag Therapy) 0.93 APTT 21.0 L Sodium 137 Potassium 4.1 Chloride 104 Carbon Dioxide 19 L Anion Gap 14 H BUN 13 Creatinine 0.85 Est GFR ( Amer) 80.7 Est GFR (Non-Af Amer) 66.7 BUN/Creatinine Ratio 15.3 Glucose 200 H Lactic Acid Calcium 9.7 Magnesium 1.9 Total Bilirubin 1.20 H AST 24 ALT 29 Alkaline Phosphatase 54 C-Reactive Protein 1.79 Total Protein 7.8 Albumin 4.5 Globulin 3.3 Albumin/Globulin Ratio 1.4 Amylase 81 Lipase 33 Urine Color Urine Appearance Urine pH Ur Specific [place] Urine Protein Urine Ketones Urine Blood Urine Nitrate Urine Bilirubin Urine Urobilinogen Ur Leukocyte Esterase Urine Glucose 03/14/18 03/14/18 03/15/18 19:51 21:16 00:09 WBC RBC Hgb Hct MCV MCH MCHC RDW Plt Count MPV Neut % (Auto) Lymph % (Auto) Lewis % (Auto) Eos % (Auto) Baso % (Auto) Absolute Neuts (auto) Absolute Lymphs (auto) Absolute Monos (auto) Absolute Eos (auto) Absolute Basos (auto) Absolute Nucleated RBC Nucleated RBC % INR (Anticoag Therapy) APTT Sodium Potassium Chloride Carbon Dioxide Anion Gap BUN Creatinine Est GFR ( Amer) Est GFR (Non-Af Amer) BUN/Creatinine Ratio Glucose Lactic Acid 3.8 H* 1.7 Calcium Magnesium Total Bilirubin AST ALT Alkaline Phosphatase C-Reactive Protein Total Protein Albumin Globulin Albumin/Globulin Ratio Amylase Lipase Urine Color Yellow Urine Appearance Clear Urine pH 7.0 Ur Specific [place] 1.013 Urine Protein Negative Urine Ketones 2+ A Urine Blood Negative Urine Nitrate Negative Urine Bilirubin Negative Urine Urobilinogen Negative Ur Leukocyte Esterase Negative Urine Glucose 1+(50 mg/dl) A 03/15/18 03/15/18 07:57 07:57 WBC 16.9 H RBC 4.69 Hgb 13.4 Hct 40 MCV 86 MCH 29 MCHC 33 RDW 12 Plt Count 327 MPV 7.9 Neut % (Auto) 91.5 H Lymph % (Auto) 5.7 L Lewis % (Auto) 2.7 Eos % (Auto) 0 Baso % (Auto) 0.1 Absolute Neuts (auto) 15.5 H Absolute Lymphs (auto) 1.0 Absolute Monos (auto) 0.5 Absolute Eos (auto) 0 Absolute Basos (auto) 0 Absolute Nucleated RBC 0 Nucleated RBC % 0.1 INR (Anticoag Therapy) APTT Sodium 135 Potassium 3.3 L Chloride 103 Carbon Dioxide 23 Anion Gap 9 BUN 9 Creatinine 0.63 Est GFR ( Amer) 114.1 Est GFR (Non-Af Amer) 94.3 BUN/Creatinine Ratio 14.3 Glucose 125 H Lactic Acid Calcium 8.7 Magnesium Total Bilirubin AST ALT Alkaline Phosphatase C-Reactive Protein Total Protein Albumin Globulin Albumin/Globulin Ratio Amylase Lipase Urine Color Urine Appearance Urine pH Ur Specific [place] Urine Protein Urine Ketones Urine Blood Urine Nitrate Urine Bilirubin Urine Urobilinogen Ur Leukocyte Esterase Urine Glucose Microbiology and Other Data: Microbiology 03/14/18 19:40 Stool Stool Occult Blood (SHANELLE) - Final - Negative Assess/Plan/Problems-Billing Assessment: 67 yr old female with PMH of esophagitis (which she was scoped for in May 2017 and is tx with diet changes) and hiatel hernia which was noted on May 2017 scope , who presented with abd pain and n/v ct of abd + sig diverticulitis got flagyl and levaquin in ED. Had BM in ED. Admitted to Med/Surg. IV Flagyl and Levaquin continued. - Patient Problems (1) Sigmoid diverticulitis Comment: - Continue Levaquin and Flagyl - Continue IV fluid - Clear liquid for now and advance as tolerated (2) Hx of esophagitis Current Visit: Yes Status: Acute Code(s): Z87.19 - PERSONAL HISTORY OF OTHER DISEASES OF THE DIGESTIVE SYSTEM SNOMED Code(s): 757802498127124 Comment: - Denies need for PPI - Controls reflux with lifestyle modifications at home. (3) DVT prophylaxis Comment: - Ambulation encouraged. Status and Disposition: Advance diet as tolerated. Possible d/c tomorrow with PO abx if tolerating diet Attending: Malika Siddiqui
[2018-03-16] MEDS ORDERED: Acetaminophen TAB* 325 MG PO PRN (02:11)
[2018-03-16] MEDS: metroNIDAZOLE IV 500 MG/100ML* 500 MG/100 ML BAG IVPB SCH ×2 (02:21→09:04)
[2018-03-16] MEDS ORDERED: LORazepam INJ* 2 MG/ML 1 ML VIAL ONE (03:58)
[2018-03-16] MEDS: PROCHLORPERAZINE INJ 5 MG/ML 2 ML VIAL IV PRN ×2 (04:06→10:26)
[2018-03-16] MEDS ORDERED: LORazepam INJ* 2 MG/ML 1 ML VIAL IV PUSH ONE (04:15)
[2018-03-16 06:01] LABS: ABS Basophils 0 10^3/ul (0-0.2); ABS Eosinophils 0 10^3/ul (0-0.6); ABS Lymphocytes 1.1 10^3/ul (1.0-4.8); ABS Monocytes 0.5 10^3/ul (0-0.8); ABS Neutrophils 8.6 10^3/ul (1.5-7.7); ABS Nucleated RBC 0 10^3/ul; Eosinophil % 0.2 % (0-6); Hematocrit 41 % (35-47); Hemoglobin 13.5 g/dl (12.0-16.0); Lymphocyte % 10.5 % (25-47); Mean Corpuscular HGB Conc 33 g/dl (31-36); Mean Corpuscular Hemoglobin 29 pg (27-31); Mean Corpuscular Volume 86 fL (80-97); Mean Platelet Volume 8.3 fL (7.4-10.4); Nucleated Red Blood Cells % 0.1; Platelet Count 286 10^3/ul (150-450); Red Blood Count 4.72 10^6/ul (4.00-5.40); Red Cell Distribution Width 13 % (10.5-15); White Blood Count 10.2 10^3/ul (3.5-10.8)
[2018-03-16 06:21] LABS: EGFR Non-African American 87.8 (>60)
--- NOTE | 2018-03-16 08:36 | PN ---
Subjective Date of Service: 03/16/18 Interval History: Feels worse today. States she had a headache last night and asked for aspirin and was told she has morphine ordered. After morphine, she felt nauseated and unwell. Still feels 'crummy' Had a loose BM this am - nonbloody. Has not been able to eat or drink this morning. Abdominal pain improving. No CP or SOB. Family History: Unchanged from Admission Social History: Unchanged from Admission Past Medical History: Unchanged from Admission Objective Active Medications: Acetaminophen (Tylenol Tab*) 650 mg PO Q6H PRN PRN Reason: PAIN Last Admin: 03/16/18 02:20 Dose: 650 mg Fluoxetine HCl (Prozac Cap*) 40 mg PO DAILY [facility] Last Admin: 03/15/18 07:49 Dose: 40 mg Metronidazole/Sodium Chloride (Flagyl 500 Mg Ivpb*) 500 mg in 100 mls @ 100 mls /hr IVPB Q8H [facility] Last Admin: 03/16/18 02:21 Dose: 100 mls/hr Levofloxacin/Dextrose (Levaquin 750 Mg Ivpremix(*)) 750 mg in 150 mls @ 100 mls /hr IVPB 2345 [facility] Last Admin: 03/15/18 23:56 Dose: 100 mls/hr Nepafenac ([place] (Nf)) [facility] [place] Protocol Last Admin: 03/15/18 07:47 Dose: Not Given Ondansetron HCl (Zofran Inj*) 4 mg IV Q6H PRN PRN Reason: NAUSEA Last Admin: 03/15/18 02:10 Dose: 4 mg Potassium Chloride (Klor Con Er Tab*) 40 meq PO Q4HR [facility] Stop: 03/16/18 14:01 Prochlorperazine Edisylate (Compazine Inj*) 2.5 mg IV Q6H PRN PRN Reason: NAUSEA/VOMITING Last Admin: 03/16/18 04:06 Dose: 2.5 mg Vital Signs - 8 hr 03/16/18 03/16/18 03/16/18 02:17 04:06 04:10 Pulse Rate 88 Respiratory 18 30 24 Rate Blood Pressure 174/83 (mmHg) O2 Sat by Pulse 97 Oximetry 03/16/18 05:15 Pulse Rate Respiratory 18 Rate Blood Pressure (mmHg) O2 Sat by Pulse Oximetry Oxygen Devices in Use Now: None Eyes: No Scleral Icterus Ears/Nose/Mouth/Throat: Mucous Membranes Moist Respiratory: Symmetrical Chest Expansion and Respiratory Effort, Clear to Auscultation Cardiovascular: NL Sounds; No Murmurs; No JVD, RRR Abdominal: NL Sounds; No Tenderness; No Distention, No Hepatosplenomegaly, - - + BS Skin: No Rash or Ulcers Neurological: Alert and Oriented x 3 Result Diagrams: 03/16/18 05:22 03/16/18 05:22 Additional Lab and Data: Laboratory Results - last 24 hr 03/14/18 03/14/18 03/14/18 19:51 19:51 19:51 WBC 13.8 H RBC 4.92 Hgb 14.3 Hct 42 MCV 86 MCH 29 MCHC 34 RDW 12 Plt Count 334 MPV 8.3 Neut % (Auto) 88.4 H Lymph % (Auto) 9.5 L [place] % (Auto) 1.8 Eos % (Auto) 0.2 Baso % (Auto) 0.1 Absolute Neuts (auto) 12.2 H Absolute Lymphs (auto) 1.3 Absolute Monos (auto) 0.2 Absolute Eos (auto) 0 Absolute Basos (auto) 0 Absolute Nucleated RBC 0 Nucleated RBC % 0 INR (Anticoag Therapy) 0.93 APTT 21.0 L Sodium 137 Potassium 4.1 Chloride 104 Carbon Dioxide 19 L Anion Gap 14 H BUN 13 Creatinine 0.85 Est GFR ( Amer) 80.7 Est GFR (Non-Af Amer) 66.7 BUN/Creatinine Ratio 15.3 Glucose 200 H Lactic Acid Calcium 9.7 Magnesium 1.9 Total Bilirubin 1.20 H AST 24 ALT 29 Alkaline Phosphatase 54 C-Reactive Protein 1.79 Total Protein 7.8 Albumin 4.5 Globulin 3.3 Albumin/Globulin Ratio 1.4 Amylase 81 Lipase 33 Urine Color Urine Appearance Urine pH Ur Specific [place] Urine Protein Urine Ketones Urine Blood Urine Nitrate Urine Bilirubin Urine Urobilinogen Ur Leukocyte Esterase Urine Glucose 03/14/18 03/14/18 03/15/18 19:51 21:16 00:09 WBC RBC Hgb Hct MCV MCH MCHC RDW Plt Count MPV Neut % (Auto) Lymph % (Auto) [place] % (Auto) Eos % (Auto) Baso % (Auto) Absolute Neuts (auto) Absolute Lymphs (auto) Absolute Monos (auto) Absolute Eos (auto) Absolute Basos (auto) Absolute Nucleated RBC Nucleated RBC % INR (Anticoag Therapy) APTT Sodium Potassium Chloride Carbon Dioxide Anion Gap BUN Creatinine Est GFR ( Amer) Est GFR (Non-Af Amer) BUN/Creatinine Ratio Glucose Lactic Acid 3.8 H* 1.7 Calcium Magnesium Total Bilirubin AST ALT Alkaline Phosphatase C-Reactive Protein Total Protein Albumin Globulin Albumin/Globulin Ratio Amylase Lipase Urine Color Yellow Urine Appearance Clear Urine pH 7.0 Ur Specific [place] 1.013 Urine Protein Negative Urine Ketones 2+ A Urine Blood Negative Urine Nitrate Negative Urine Bilirubin Negative Urine Urobilinogen Negative Ur Leukocyte Esterase Negative Urine Glucose 1+(50 mg/dl) A 03/15/18 03/15/18 07:57 07:57 WBC 16.9 H RBC 4.69 Hgb 13.4 Hct 40 MCV 86 MCH 29 MCHC 33 RDW 12 Plt Count 327 MPV 7.9 Neut % (Auto) 91.5 H Lymph % (Auto) 5.7 L [place] % (Auto) 2.7 Eos % (Auto) 0 Baso % (Auto) 0.1 Absolute Neuts (auto) 15.5 H Absolute Lymphs (auto) 1.0 Absolute Monos (auto) 0.5 Absolute Eos (auto) 0 Absolute Basos (auto) 0 Absolute Nucleated RBC 0 Nucleated RBC % 0.1 INR (Anticoag Therapy) APTT Sodium 135 Potassium 3.3 L Chloride 103 Carbon Dioxide 23 Anion Gap 9 BUN 9 Creatinine 0.63 Est GFR ( Amer) 114.1 Est GFR (Non-Af Amer) 94.3 BUN/Creatinine Ratio 14.3 Glucose 125 H Lactic Acid Calcium 8.7 Magnesium Total Bilirubin AST ALT Alkaline Phosphatase C-Reactive Protein Total Protein Albumin Globulin Albumin/Globulin Ratio Amylase Lipase Urine Color Urine Appearance Urine pH Ur Specific [place] Urine Protein Urine Ketones Urine Blood Urine Nitrate Urine Bilirubin Urine Urobilinogen Ur Leukocyte Esterase Urine Glucose Microbiology and Other Data: Microbiology 03/14/18 19:40 Stool Stool Occult Blood (SHANELLE) - Final - Negative Assess/Plan/Problems-Billing Assessment: This is a 67 yr old with PMHx of esophagitis and hiatal hernia who presented with abdominal pain, N/V found to have sigmoid diverticulitis. Clinically improving - Patient Problems (1) Sigmoid diverticulitis Current Visit: Yes Status: Acute Code(s): K57.32 - DVTRCLI OF LG INT W/O PERFORATION OR ABSCESS W/O BLEEDING SNOMED Code(s): 700295397 Comment: A. On soft diet - will try now - Continue Levaquin and Flagyl If improved in PO - will d/c to home today (2) Hx of esophagitis Current Visit: Yes Status: Acute Code(s): Z87.19 - PERSONAL HISTORY OF OTHER DISEASES OF THE DIGESTIVE SYSTEM SNOMED Code(s): 307404844837872 Comment: - Denies need for PPI - Controls reflux with lifestyle modifications at home. (3) Depression Current Visit: Yes Status: Acute Code(s): F32.9 - MAJOR DEPRESSIVE DISORDER , SINGLE EPISODE, UNSPECIFIED SNOMED Code(s): 11098109 Comment: A/P Stable - continue fluoxetine (4) Hypokalemia Current Visit: Yes Status: Acute Code(s): E87.6 - HYPOKALEMIA SNOMED Code( s): 54193187 Comment: A/P - Likely from vomiting and decrease PO Will replete (5) DVT prophylaxis Current Visit: Yes Status: Acute Code(s): LQT1091 - SNOMED Code(s): 624868353 Comment: - Ambulation encouraged. Status and Disposition: Advance diet as tolerated. Possible d/c later today if tolerating PO
[2018-03-16] MEDS ORDERED: KCL 20 MEQ/100 ML IVPREMIX* 20 MEQ/100 ML BAG IV ONE (09:46)
[2018-03-16] MEDS ORDERED: Potassium Chlor TAB* 20 MEQ TAB.ER PO SCH (10:00)
[2018-03-16] MEDS: FLUoxetine CAP* 20 MG PO SCH (11:06)
[2018-03-16] MEDS: NEPAFENAC LEFT EYE SCH (11:07)
[2018-03-16] MEDS: NS 0.9% w/ 20 Meq KCL 1000 ML* 1,000 ML IV SCH ×2 (11:16→22:17)
[2018-03-16] MEDS ORDERED: PROCHLORPERAZINE INJ 5 MG/ML 2 ML VIAL IV PRN (12:52)
[2018-03-16] MEDS ORDERED: fentaNYL* 50 MCG/ML 2 ML VIAL (100 MCG VIAL) IV SLOW PU ONE (12:52)
[2018-03-16] MEDS ORDERED: Metoclopramide IV* 5 MG/ML 2 ML VIAL IV PRN (13:13)
[2018-03-16] MEDS ORDERED: Piperacillin/Tazobac ADVAN(*) 3.375 GM in NS 0.9% 100 ML* 100 ML IVPB ONE (13:14)
[2018-03-16] MEDS: Ondansetron INJ* 2 MG/ML VIAL IV PRN ×2 (13:26→19:31)
[2018-03-16] MEDS: LORazepam INJ* 2 MG/ML 1 ML VIAL IV PUSH PRN ×3 (13:29→22:13)
[2018-03-16] MEDS ORDERED: Zosyn per Pharmacy* NOTE FOLLOW UP SCH (14:00)
[2018-03-16] MEDS: Pantoprazole IV* 40 MG IV SCH (15:07)
[2018-03-16 15:24] LABS: EGFR Non-African American 97.8 (>60)
[2018-03-16] MEDS: ZOSYN 3.375 GM Q8H per EXTENDED INFUSION IVPB SCH ×2 (17:59)
[2018-03-16] MEDS ORDERED: DICLOFENAC 0.1% LEFT EYE SCH (21:00)
[2018-03-16] MEDS ORDERED: PTO:prednisoLONE 1% OPHTH.SUSP* 5 ML OPHTH.SUSP LEFT EYE SCH (21:00)
[2018-03-17] MEDS: ZOSYN 3.375 GM Q8H per EXTENDED INFUSION IVPB SCH ×4 (03:00→10:31)
[2018-03-17] MEDS: LORazepam INJ* 2 MG/ML 1 ML VIAL IV PUSH PRN ×2 (03:38→10:43)
[2018-03-17] MEDS: NS 0.9% w/ 20 Meq KCL 1000 ML* 1,000 ML IV SCH ×2 (06:14→06:29)
[2018-03-17 07:01] LABS: ABS Basophils 0 10^3/ul (0-0.2); ABS Eosinophils 0 10^3/ul (0-0.6); ABS Lymphocytes 2.6 10^3/ul (1.0-4.8); ABS Monocytes 0.9 10^3/ul (0-0.8); ABS Neutrophils 8.1 10^3/ul (1.5-7.7); ABS Nucleated RBC 0 10^3/ul; Eosinophil % 0.3 % (0-6); Hematocrit 38 % (35-47); Hemoglobin 12.9 g/dl (12.0-16.0); Lymphocyte % 22.1 % (25-47); Mean Corpuscular HGB Conc 34 g/dl (31-36); Mean Corpuscular Hemoglobin 29 pg (27-31); Mean Corpuscular Volume 85 fL (80-97); Mean Platelet Volume 8.2 fL (7.4-10.4); Nucleated Red Blood Cells % 0; Platelet Count 295 10^3/ul (150-450); Red Cell Distribution Width 12 % (10.5-15); White Blood Count 11.6 10^3/ul (3.5-10.8)
[2018-03-17 07:20] LABS: EGFR Non-African American 83.5 (>60)
[2018-03-17] MEDS: FLUoxetine CAP* 20 MG PO SCH (08:52)
[2018-03-17] MEDS ORDERED: KCL 20 MEQ/100 ML IVPREMIX* 20 MEQ/100 ML BAG IV ONE (08:56)
[2018-03-17] MEDS ORDERED: Potassium Chlor TAB* 20 MEQ TAB.ER PO SCH (09:00)
[2018-03-17] MEDS: Pantoprazole IV* 40 MG IV SCH (10:31)
[2018-03-17 12:11] VITALS: BP 127/58
--- NOTE | 2018-03-20 04:02 | DS ---
CC: Dr. Malika Nails.* DISCHARGE SUMMARY: DATE OF ADMISSION: 03/14/18 DATE OF DISCHARGE: 03/17/18 PRIMARY CARE PROVIDER: Dr. Malika Nails. ATTENDING PHYSICIAN: Deven Spaulding M.D. * (dictated by Estephania Bennett NP). PRIMARY DIAGNOSES: 1. Sigmoid diverticulitis. 2. Hypokalemia. SECONDARY DIAGNOSES: 1. Depression. 2. History of esophagitis. STUDIES WHILE IN THE HOSPITAL: Abdomen and pelvis CT on 03/14/18 reads as sigmoid colon diverticulitis without perforation or abscess. HISTORY OF PRESENT ILLNESS AND HOSPITAL COURSE: Ms. Palacio is a 67-year-old female with past medical history of esophagitis and depression, who presented to the emergency room on 03/14/18 with complaints of abdominal pain, nausea, and vomiting. Please see the history and physical by Dr. Grace for a complete summary of the events leading up to this hospitalization. In short, the patient had abdominal pain since the night before. Pain was mostly suprapubic. She had associated nausea and vomiting. She was admitted by the hospitalist service. She had an elevated white count on admission of 13.8, although lactic acid and vital signs were normal. The patient was started on Levaquin and Flagyl and kept on clear liquids. Ultimately, she was taken off Flagyl due to GI upset and was placed on Zosyn. Her symptoms gradually improved and as of the day of discharge, she was able to tolerate a soft diet for breakfast. She was noted to have hypokalemia during this admission. On admission, her potassium was 4.1 though on 03/26/18, she dipped down to 2.8. As of the day of discharge, she is 3.2 and she has been repleted daily including today prior to discharge. The patient was having anxiety and ultimately required Ativan to aid in sleep. As of today, she has no further abdominal pain at rest or on palpation and is anxious to return home. Ms. Palacio is stable for discharge today. Vital signs are as follows: Temp 98.0 , heart rate 71, respiratory rate 18, oxygen saturation 98% on room air, blood pressure 127/58. DISCHARGE MEDICATIONS: New home medications: 1. Moxifloxacin 400 mg p.o. daily x5 days. 2. Lorazepam 0.5 mg p.o. at bedtime p.r.n. anxiety. 3. Ondansetron ODT p.r.n. p.o. q.6 hours p.r.n. nausea, vomiting. Continued home medications: 1. Fluoxetine 40 mg p.o. daily. 2. Nepafenac 1 drop left eye daily. DISCHARGE PLAN: Ms. Palacio will be discharged to home. Activity will be as tolerated. Diet will be regular, as tolerated though she has been advised to advance her diet slowly. New medications are noted above. The patient did not tolerate Flagyl while here in the hospital, so she has been placed on moxifloxacin for 5 days to complete a total of 7 days of antibiotic therapy. She has additionally been prescribed Zofran for any nausea. Per the request of patient and her family, she has been prescribed 5 tablets of lorazepam to aid in sleep during this acute illness. The patient has been advised to follow up with her PCP if she requires any additional Ativan. She should follow up with her PCP in the next 4 to 7 days. She has been advised to return to the emergency room or nearest hospital for any worsening of symptoms, shortness of breath, lightheadedness, dizziness, chest discomfort, high fevers, chills, night sweats, loss of consciousness, or any other worrisome signs or symptoms. This is a summarized report of a complex medical history and hospital stay. For further details, please see the entire medical record. TIME SPENT: Approximately 40 minutes were spent on this discharge, greater than half of that time was spent [id number] with patient and her family discussing discharge plans and instructions. ESTEPHANIA BENNETT NP [id number]/CPS #: [id number] GURWINDER
== END 2018-03-17 15:45 | disposition home or self-care (01) | DRG 392 ==
LOC: ED 19:14 → MED 03-15 00:25 → OBSVTOIN 03-16 10:00
PROVIDERS: ADMIT Internal Medicine; ATTEND Pediatrics
DX: K57.32 Diverticulitis of large intestine without perforation or abscess without bleeding (principal); R65.10 Systemic inflammatory response syndrome (SIRS) of non-infectious origin without acute organ dysfunction; K44.9 Diaphragmatic hernia without obstruction or gangrene; E87.6 Hypokalemia; K21.9 Gastro-esophageal reflux disease without esophagitis; M19.90 Unspecified osteoarthritis, unspecified site; H40.9 Unspecified glaucoma; Z98.51 Tubal ligation status; Z98.42 Cataract extraction status, left eye; Z81.8 Family history of other mental and behavioral disorders; Z87.19 Personal history of other diseases of the digestive system; Z87.891 Personal history of nicotine dependence; Z72.89 Other problems related to lifestyle; Z98.41 Cataract extraction status, right eye; Z83.3 Family history of diabetes mellitus
CPT/HCPCS: 36415; 74177; 80048; 80053; 81003; 82150; 82270; 83605; 83690; 83735; 85025; 85610; 85730; 86140; 96374; 96375; 99285; A9270-GY; G0378; J0780; J1885; J1956; J2060; J2270; J2405; J2543; J2765; J3480; J3490; Q9967

== ENCOUNTER 2023-06-19 05:11 | Observation (INO) ==
[2023-06-19] MEDS: Lactated Ringers 1000 ml BAG 1,000 ML IV ONE (05:36)
[2023-06-19 06:24] LABS: ABS Lymphocytes 1.5 10^3/uL (1.0-4.8); ABS Monocytes 0.9 10^3/uL (0.0-0.9); Eosinophil % 0.1 %; Hematocrit 40.9 % (35-45); Hemoglobin 13.7 g/dL (11.5-14.3); Lymphocyte % 13.4 %; Mean Corpuscular Hemoglobin 28.4 pg (27-33); Mean Corpuscular Hgb Conc 33.5 g/dL (31-36); Mean Corpuscular Volume 84.8 fL (80-97); Mean Platelet Volume 8.2 fL (7.5-11.2); Platelet Count 256 10^3/uL (150-450); Red Blood Count 4.83 10^6/uL (3.63-4.92); Red Cell Distribution Width 12.7 % (12-17); White Blood Count 11.5 10^3/uL (3.8-11.8)
[2023-06-19 06:25] LABS: INR 1.18 (0.83-1.13)
[2023-06-19 06:43] LABS: ALT 14 U/L (7-52); AST 19 U/L (13-39); Albumin 3.5 g/dL (3.2-5.2); Albumin/Globulin Ratio 1.2 (1-3); Alcohol, S < 13 mg/dL (<13); Alkaline Phosphatase 58 U/L (35-149); Anion Gap 9 mmol/L (2-16); Blood Urea Nitrogen 20 mg/dL (6-24); CO2 Carbon Dioxide 26 mmol/L (22-32); Calcium 8.5 mg/dL (8.6-10.3); Chloride 100 mmol/L (101-111); Creatinine, Serum 0.89 mg/dL (0.51-0.95); Globulin 2.9 g/dL (2-4); Glucose 118 mg/dL (70-100); Potassium 3.1 mmol/L (3.5-5.0); Sodium 135 mmol/L (135-145); Total Bilirubin 1.5 mg/dL (0.2-1.0); Total Protein 6.4 g/dL (6.4-8.9); eGFR CKD-EPI 68.8 (>60)
[2023-06-19] MEDS: Ondansetron 4 mg VIAL 2 MG/ML 2 ml VIAL IV ONE (07:54)
[2023-06-19] MEDS ORDERED: Ondansetron 4 mg VIAL 2 MG/ML 2 ml VIAL IV PRN (08:28)
[2023-06-19] MEDS: Lactated Ringers 1000 ml BAG 1,000 ML IV SCH (08:46)
[2023-06-19 09:28] LABS: C Reactive Protein 2.96 mg/L (<8.01); Magnesium 1.9 mg/dL (1.9-2.7)
[2023-06-19 09:35] LABS: High Sens Troponin Baseline 99 pg/mL (<15)
[2023-06-19] MEDS: Pantoprazole VIAL 40 MG VIAL IV ONE (10:49)
[2023-06-19] MEDS: Potassium Chlor 20 meq TAB.ER PO ONE (10:51)
[2023-06-19] MEDS: Prochlorperazine 5 mg/ml 2 ml VIAL (10 mg) IV PRN (11:41)
[2023-06-19 12:16] LABS: High Sensitivity Troponin 1 Hr 109 pg/mL (<15)
[2023-06-19] MEDS: KCL 20 MEQ/100 ML IVPREMIX 20 MEQ/100 ML BAG IV SCH (12:53)
[2023-06-19] MEDS: NS 0.9% 1000 ml BAG 1,000 ML IV SCH (12:53)
[2023-06-19 13:59] LABS: Urine Appearance Clear; Urine Bilirubin Negative (Negative); Urine Blood Negative (Negative); Urine Color Light-Yellow; Urine Glucose Negative (Negative); Urine Ketones 1+ (Negative); Urine Nitrite Negative (Negative); Urine Protein Negative (Negative); Urine Specific Gravity 1.009 (1.002-1.030); Urine Urobilinogen Negative (Negative); Urine pH 6.5 (5.0-8.0)
[2023-06-19] MEDS: hydrALAZINE 20 mg/ml 1 ML Vial IV IV SLOW PU PRN (15:29)
[2023-06-19] MEDS: NS 0.9% 1000 ml BAG 1,000 ML IV ONE (22:13)
[2023-06-20 07:32] LABS: Calcium 8.1 mg/dL (8.6-10.3); Creatinine, Serum 0.63 mg/dL (0.51-0.95); eGFR CKD-EPI 94.2 (>60)
[2023-06-20] MEDS: prednisoLONE 1% OPHTH.SUSP 5 ML OPHTH.SUSP LEFT EYE SCH (08:13)
[2023-06-20] MEDS: NEPAFENAC LEFT EYE SCH (08:16)
[2023-06-20] MEDS ORDERED: KCL 20 MEQ/100 ML IVPREMIX 20 MEQ/100 ML BAG IV SCH (09:00)
[2023-06-20] MEDS: Potassium Chlor 20 meq TAB.ER PO ONE (09:07)
[2023-06-20 09:34] VITALS: BP 140/80
== END 2023-06-20 09:35 | disposition home or self-care (01) ==
LOC: EDHOLD 05:11 → ED 05:11 → EDHOLD 06-20 09:33
PROVIDERS: ADMIT Hospitalist; ATTEND Hospitalist